=== PATIENT | male | born 1965 | race Caucasian/White ===

== ENCOUNTER 2024-01-29 07:22 | Emergency (ER) | payer OTHER, SELFPAY ==
[2024-01-29] VITALS (7 sets, daily range): BP systolic 118–157; BP diastolic 82–89; PULSE 60–66
--- NOTE | 2024-01-29 07:59 | ED.GENMED ---
History of Present Illness
General
Chief Complaint: Dizziness
Source: patient
Exam Limitations: none
Time Seen by Provider: 01/29/24 07:55
Nursing documentation reviewed up to this point in time: agreed with
Travel History
Have you had any contact with someone who has COVID-19?: No
Do you have any symptoms of coronavirus? Fever > 100 degrees, chills, cough, shortness of breath, sore throat, loss of taste or smell, muscle aches, or headache?: No
History of Present Illness
History of Present Illness:
Patient with history of hypercholesterolemia, presents to ED secondary to sudden onset of dizziness during workout at home this morning. Patient reports waking up at his normal time this morning and having a couple coffee, which is typical for the
patient. Patient was outside working out with an instructor for approximate 20 minutes, when he felt extreme lightheadedness, when he stood up from exercise. Patient proceeded to sit down and gradually symptoms improved, but his blood pressure was
elevated. Patient states that he had water with him while he was working out. Denies chest pain. Denies shortness of breath. Denies nausea or vomiting. Denies diaphoresis. Of note, patient reports receiving cardiac catheterization 2 years ago
which showed approximately 60% lesion in his LAD. He has spoken with his inspection supervisor at [facility], Dr. Briscoe, and has been managed with outpatient echocardiogram, including 2 months ago, as well as medications. There is family
history of heart disease. Denies recent illness. Denies recent travel or surgery. Denies leg pain or swelling. Of note, this weekend, patient states that he was under stress and had worked hard, as he was hosting a constitution party.
Past History
Past History
ED Past Medical History: Other (Sciatica, Gout)
ED Past Surgical History: Orthopedic (Carpal tunnel, Bicep Tendon repair, Left knee surgery, Laminectomy, Fusion, ); Negative Appendectomy
Social History
Tobacco: Non-smoker
Alcohol: Occasional
Drug: None
Personal:
Living: with family
Employment: Employed
Family History
Family History: Other (Noncontributory)
Review of Systems
Review of Systems
Allergies reviewed?: Yes
All Other Systems: ROS reviewed and negative except as documented in HPI and ROS
Constitutional: Reports no symptoms
EENT: Reports no symptoms
Respiratory: Reports no symptoms; Denies trouble breathing
Cardiac: Reports no symptoms; Denies chest pain
ABD/GI: Reports no symptoms
: Reports no symptoms
Musculoskeletal: Reports no symptoms
Skin: Reports no symptoms
Neurological: Reports dizzy; Denies headache
Phy Exam
Physical Exam
Physical Exam:
Physical Exam
General: no apparent distress, not acutely ill. afebrile
Head: nc/at. eomi
Neck: supple. no meningeal signs. no carotid bruit noted.
Heart: s1/s2 regular rate and rhythm, no murmur. equal radial pulses.
Lungs: no acute respiratory distress. clear bilaterally
Abdomen: normal bowel sounds. not tender.
Neuro: alert and oriented. no focal neurological deficits
Skin: no rash
Psychiatric: well kept. interactive and cooperative
Extremities: no edema. no calf tenderness.
Course
Orders/Labs/Results
Orders:
Orders
01/29/24 07:29
Electrocardiogram (*1) Urgent
Reason for Study: Chest Pain
EKG- Treatment ONCE
01/29/24 08:11
Orthostatic VS- Treatment ONCE
01/29/24 08:29
Complete Blood Count/No Diff Urgent
01/29/24 09:03
Cholesterol Urgent
Comprehensive Metabolic Panel Urgent
HDL Cholesterol Urgent
LDL Cholesterol, Direct Urgent
Magnesium Urgent
Triglycerides Urgent
Troponin I Routine
Uric Acid Urgent
Abnormal Lab Results
01/29/24 01/29/24
08:29 09:03
WBC 3.3 L 10^3/uL
(4.8-10.8)
Chloride 108 H mmol/L
(98-107)
Glucose 108 H mg/dl
(70-99)
01/29/24 08:29
01/29/24 09:03
Vital Signs
Initial and Last Documented VS:
Initial Vital Signs
Temp Pulse Resp BP Pulse Ox
98.2 F 70 20 157/89 96
01/29/24 07:26 01/29/24 07:26 01/29/24 07:26 01/29/24 07:26 01/29/24 07:26
Last Documented Vital Signs
Temp Pulse Resp BP Pulse Ox
98.2 F 99 19 124/85 98
01/29/24 07:26 01/29/24 11:53 01/29/24 11:53 01/29/24 10:00 01/29/24 10:15
MDM/Problems Addressed
MDM/Problems Addressed:
Patient with an unremarkable workup in ED, and remains hemodynamically stable during extended course observation ED. Patient with stable vital signs and reports improvement during observation. History and exam consistent with likely vagal response
from exertional activity, along with lack of hydration and overall fatigue from this weekend. Patient states that he has an appointment with his inspection supervisor in the upcoming weeks, at which point he will be reevaluated. Patient advised to return
to ED with worsening symptoms. Patient otherwise appears comfortable, and without any distress at time of discharge, to the care of of his spouse.
*EKG
Interpreted by ED Provider?: Yes
EKG Intrepretation Date: 01/29/24
Interpretation: normal
Heart Rate: 69
Rate: normal
Rhythm: sinus
[place]: normal axis
Interval: normal interval
*Critical Care Note
Total Time (30-74mins, 75-104mins- exclusive of procedures): Not Applicable
ED Attending Note
-
Portions of this chart may have been created with voice recognition software.� Occasional wrong word or��sound alike� substitutions may have occurred due to the inherent limitations of voice recognition software.
Discharge Plan
Departure
Patient Disposition: Home (Routine Discharge)
Date of Disposition: 01/29/24
Time of Disposition: 10:48
Patient with high blood pressure during this ER visit?: Yes
Condition: Good
Discharge Problem:
Dizziness
Instructions: Dizziness
Prescriptions:
No Action
coQ10 (ubiquinol) 100 mg Capsule
100 mg PO DAILY Qty: 0
aspirin 81 MG tablet,chewable
81 mg PO DAILY
atorvastatin 40 MG tablet
40 mg PO DAILY Qty: 90 3RF
ezetimibe 10 mg Tablet
10 mg PO DAILY
Theragen Tablet
1 tab PO DAILY
ibuprofen [Advil] 200 mg Tablet
200 mg PO Q6HPRN PRN (Reason: mild pain)
indomethacin 50 mg Capsule
50 mg PO DAILYPRN PRN (Reason: gout flares)
zinc sulfate 50 mg zinc (220 mg) Capsule
50 mg PO DAILY
Referrals:
Cali Dixon I., DO [Family Provider] -
Activity Restrictions/Additional Instructions:
As discussed, please follow-up with your primary care physician and/or inspection supervisor with any further concerns.
Interventions
Interventions:
*Risk Screen - Suicide Last Done: 01/29/24 08:23
*General Assessment Last Done: 01/29/24 08:23
*Neglect/Abuse Screening Last Done: 01/29/24 08:23
ED- Fall Risk Assessment Last Done: 01/29/24 08:23
*ED COVID-19 Vaccine History Last Done: 01/29/24 08:23
*Nursing Disposition Last Done: 01/29/24 11:25
ED- Neurological Assessment Last Done: 01/29/24 08:23
ED- Cardiac Assessment Last Done: 01/29/24 08:23
ED Swallowing Screen Last Done: 01/29/24 11:25
Discharge Date and Time
Discharge Date/Time: 01/29/24 11:30
Print Language: [email or web address]
[2024-01-29 08:38] LABS: Hematocrit 41.8 % (39.0-52.0); Hemoglobin 14.6 g/dL (13.0-18.0); Mean Corp Hgb Conc. 34.9 g/dL (33.0-37.0); Mean Corpuscular Hgb 30.5 pg (27.0-31.0); Mean Corpuscular Volume 87.3 fL (80.0-94.0); Mean Platelet Volume 8.8 fL (7.4-10.4); Platelet Count 149 10^3/uL (130-400); Red Blood Cell Count 4.79 10^6/uL (4.70-6.10); Red Cell Dist. Width 12.9 % (11.5-14.5); White Blood Cell Count 3.3 10^3/uL (4.8-10.8)
[2024-01-29 10:03] LABS: ALT (SGPT) 41 U/L (0-50); AST (SGOT) 37 U/L (17-59); Albumin 4.2 g/dl (3.5-5.0); Alkaline Phosphatase 52 U/L (38-126); Blood Urea Nitrogen 18 mg/dl (9-20); Calcium 9.2 mg/dl (8.4-10.2); Carbon Dioxide 25 mmol/L (22-30); Chloride 108 mmol/L (98-107); Cholesterol 138 mg/dl (50-199); Glucose 108 mg/dl (70-99); HDL Cholesterol 52 mg/dl; Magnesium 2.1 mg/dl (1.6-2.3); Potassium 5.1 mmol/L (3.5-5.1); Sodium 140 mmol/L (135-145); Total Bilirubin 0.7 mg/dl (0.2-1.3); Total Protein 6.6 g/dl (6.3-8.2); Triglycerides 109 mg/dl (10-149); eGFR > 60.00
[2024-01-29 10:12] LABS: Troponin I < 0.012 ng/ml
[2024-01-29 10:25] LABS: LDL Cholesterol, Direct 77 mg/dl
== END 2024-01-29 11:30 | disposition home or self-care (01) ==
LOC: EMR 07:22
PROVIDERS: EMERGENCY PHYSICIAN Emergency Medicine; FAMILY PHYSICIAN Internal Medicine
DX: R42 Dizziness and giddiness (principal); R07.89 Other chest pain; R03.0 Elevated blood-pressure reading, without diagnosis of hypertension; M54.30 Sciatica, unspecified side; M10.9 Gout, unspecified; Z79.82 Long term (current) use of aspirin
CPT/HCPCS: 99283; 80053; 82465; 83718; 83721; 83735; 84478; 84484; 84550; 85027; 93005

== ENCOUNTER 2024-05-11 20:50 | Emergency (ER) | payer OTHER, SELFPAY ==
[2024-05-11 20:53] VITALS: BP 133/93
[2024-05-11] MEDS: KEFLEX 500 MG PO (23:47)
--- NOTE | 2024-05-12 02:35 | ED.GENMED ---
History of Present Illness
General
Chief Complaint: Skin Problem
Source: patient
Exam Limitations: none
Time Seen by Provider: 05/11/24 23:30
Nursing documentation reviewed up to this point in time: agreed with
History of Present Illness
History of Present Illness:
58-year-old male with history as documented presents for evaluation of redness around an abrasion on his left leg. He says that a few days ago he was getting out of his hot tub and he slipped and sustained an abrasion on his left mcduffie. He says
that he was seen in urgent care and they cleaned it up and updated his tetanus. He says that over the past day or 2 he noticed that it started to get red around the area and he was concerned for infection and so he came to the emergency room. No
drainage. No fevers or chills. No other issues.
Past History
Past History
ED Past Medical History: Other (Sciatica, Gout)
ED Past Surgical History: Orthopedic (Carpal tunnel, Bicep Tendon repair, Left knee surgery, Laminectomy, Fusion, ); Negative Appendectomy
Social History
Tobacco: Non-smoker
Alcohol: Occasional
Drug: None
Personal:
Living: with family
Employment: Employed
Family History
Family History: Other (Noncontributory)
Review of Systems
Review of Systems
All Other Systems: ROS reviewed and negative except as documented in HPI and ROS
Skin: Reports other (Redness around an abrasion on the left mcduffie)
Phy Exam
Physical Exam
Physical Exam:
General: Awake, alert, oriented x3; no acute distress
Head: Normocephalic, atraumatic
Eyes: Conjunctiva normal, EOMI
Throat: Airway intact, handling secretions
Neck: Trachea midline, supple without meningismus
Lungs: Clear to auscultation bilaterally, no wheezing, rales, rhonchi
Heart: Regular rate and rhythm, no murmurs, gallops, or rubs
Abd: Soft, non distended, nontender
Neuro: Cranial nerves grossly intact, speech fluid
Skin: Patient has abrasion on the left lower leg around the area of the tibial tuberosity roughly circular approximately 3 cm; there is a rim of erythema and some slight streaking redness proximally
Extremities: No edema in extremities, equal pulses in all extremities
Scores
Heart Failure Risk
Heart Failure Risk Score: Not Applicable
Heart Score for Chest Pain Patients
STEMI patient?: Not applicable
Withdrawal Assessment of Alcohol
Withdrawal Assessment Completed?: Not applicable
Course
Orders/Labs/Results
Orders:
Orders
05/11/24 23:41
Cephalexin Monohydrate [Keflex] 500 mg PO NOW STA
05/11/24 23:42
Cephalexin Monohydrate [Keflex] 500 mg PO NOW STA
Vital Signs
Initial and Last Documented VS:
Initial Vital Signs
Temp Pulse Resp BP Pulse Ox
36.8 C 75 18 133/93 95
05/11/24 20:53 05/11/24 20:53 05/11/24 20:53 05/11/24 20:53 05/11/24 20:53
Last Documented Vital Signs
Temp Pulse Resp BP Pulse Ox
36.8 C 75 18 133/93 95
05/11/24 20:53 05/11/24 20:53 05/11/24 20:53 05/11/24 20:53 05/11/24 20:53
MDM/Problems Addressed
Differential Diagnosis Includes:
Cellulitis
MDM/Problems Addressed:
58-year-old male presents for evaluation of redness around an abrasion he sustained a few days ago. Vitals normal. Exam as above. Likely mild cellulitis. Will cover with antibiotics. Tetanus up-to-date. Spoke about return precautions all
questions answered.
*Pulse Oximetry
Patient hypoxic: no
*Critical Care Note
Total Time (30-74mins, 75-104mins- exclusive of procedures): Not Applicable
Data Reviewed
Source: patient and spouse
ED Attending Note
-
Portions of this chart may have been created with voice recognition software.� Occasional wrong word or��sound alike� substitutions may have occurred due to the inherent limitations of voice recognition software.
Discharge Plan
Departure
Patient Disposition: Home (Routine Discharge)
Date of Disposition: 05/11/24
Time of Disposition: 23:41
Patient with high blood pressure during this ER visit?: No
Discharge Problem:
Cellulitis, Abrasion of leg
Instructions: Cellulitis (Skin Infection), Adult (DC)
Prescriptions:
New
cephalexin 500 mg tablet
500 mg PO QID 7 Days Qty: 28 0RF
No Action
coQ10 (ubiquinol) 100 mg Capsule
100 mg PO DAILY Qty: 0
aspirin 81 MG tablet,chewable
81 mg PO DAILY
atorvastatin 40 MG tablet
40 mg PO DAILY Qty: 90 3RF
ezetimibe 10 mg Tablet
10 mg PO DAILY
Theragen Tablet
1 tab PO DAILY
ibuprofen [Advil] 200 mg Tablet
200 mg PO Q6HPRN PRN (Reason: mild pain)
indomethacin 50 mg Capsule
50 mg PO DAILYPRN PRN (Reason: gout flares)
zinc sulfate 50 mg zinc (220 mg) Capsule
50 mg PO DAILY
Referrals:
Cali Dixon I., [Family Provider] - Follow up in 5-7 days
Activity Restrictions/Additional Instructions:
Thank you for visiting the Emergency Department at [facility].
1. Please schedule a follow up appointment as directed. Call first thing tomorrow morning to make an appointment.
2. If indicated, please take your medications as instructed and indicated on discharge paperwork.
3. If any of your symptoms do not improve, or persist, or become more severe within 6-12 hours, please return to the emergency department for further care.
4. Please return to the emergency department if you develop a headache, neck pain/stiffness, fever greater than 100.4F, chest pain, shortness of breath, persistent nausea, vomiting, slurred speech, difficulty walking, numbness/tingling, weakness,
signs of infection or any other symptoms that are worrisome to you.
Please call [phone] if you have any questions.
Interventions
Interventions:
*Risk Screen - Suicide Last Done: 05/11/24 20:53
*General Assessment Last Done: 05/11/24 20:53
*Neglect/Abuse Screening Last Done: 05/11/24 20:53
ED- Fall Risk Assessment Last Done: 05/11/24 23:27
*ED COVID-19 Vaccine History Last Done: 05/11/24 23:27
*Nursing Disposition Last Done: 05/11/24 23:44
ED-Skin Assessment Last Done: 05/11/24 23:27
Discharge Date and Time
Discharge Date/Time: 05/11/24 23:48
Print Language: [id number]
== END 2024-05-11 23:48 | disposition home or self-care (01) ==
LOC: EMR 20:50
PROVIDERS: EMERGENCY PHYSICIAN Emergency Medicine; FAMILY PHYSICIAN Internal Medicine
DX: L03.116 Cellulitis of left lower limb (principal); S80.812A Abrasion, left lower leg, initial encounter; W18.49XA Other slipping, tripping and stumbling without falling, initial encounter
CPT/HCPCS: 99283